=== PATIENT | female | born 1975 | race American Indian/Alaskan Native ===

== ENCOUNTER 2021-09-13 14:04 | Emergency (ER) | payer SELFPAY ==
[2021-09-13 14:24] VITALS: BP 119/69
--- NOTE | 2021-09-14 13:26 | Electrocardiograph Report ---
[facility] Test Date: 2021-09-13 Test Time: 14:14:29 Pat Name: CYNTHIA PRATT Department: Room: Gender: F [employer]: KARLENE : 1975 Requested By: MARIELOS SALEH Order Number: [id number] Reading MD: Nasim Hoyos Measurements Intervals [place] Rate: 100 P: 75 MN: 157 QRS: 32 QRSD: 66 T: 45 QT: 350 QTc: 450 Interpretive Statements Sinus tachycardia No previous ECG available for comparison Electronically Signed On 09-14-2021 13:26:08 EDT by Nasim Hoyos
== END 2021-09-13 16:15 | disposition left against medical advice (07) ==
LOC: ED 14:04
DX: R07.9 Chest pain, unspecified (principal); Z53.21 Procedure and treatment not carried out due to patient leaving prior to being seen by health care provider
CPT/HCPCS: 93005